=== PATIENT | male | born 1960 | race Two or more races ===

== ENCOUNTER 2018-07-13 08:24 | Inpatient (IN) | payer OTHER ==
[2018-07-13] VITALS (20 sets, daily range): BP systolic 104–159; BP diastolic 54–98
[~2018-07-13] VITALS: Ht 167.6 cm; Wt 92.5 kg
[2018-07-13] MEDS ORDERED: Magnesium 1GM/D5W 100ML PREMIX 200 ML IV ONE ×2 (08:31→08:48)
[2018-07-13] MEDS ORDERED: methylPREDNISolone SOD SUCC 125 MG/2ML VIAL ONE (08:35)
[2018-07-13] MEDS ORDERED: ALBUTEROL FS 2.5 MG/3 ML VIAL.NEB ONE (08:37)
[2018-07-13] MEDS ORDERED: IPRATROPIUM NEB FS 0.5 MG/2.5 ML AMPUL.NEB ONE (08:37)
[2018-07-13] MEDS ORDERED: methylPREDNISolone SOD SUCC 125 MG/2ML VIAL IV ONE (09:00)
[2018-07-13] MEDS ORDERED: IPRATROPIUM NEB FS 0.5 MG/2.5 ML AMPUL.NEB NEB ONE (09:00)
[2018-07-13] MEDS ORDERED: ALBUTEROL FS 2.5 MG/3 ML VIAL.NEB NEB ONE (09:00)
[2018-07-13] MEDS ORDERED: IV NS 0.9% 1,000 ML BAG IV ONE ×3 (09:00→13:30)
[2018-07-13 09:18] LABS: CALCIUM, SERUM 8.6 mg/dL (8.5-10.1); CARBON DIOXIDE 25 mmol/L (21-32); CHLORIDE 105 mmol/L (98-107); CREATININE 1.2 mg/dL (0.6-1.3); GLUCOSE 250 mg/dL (74-106); POTASSIUM 3.3 mmol/L (3.5-5.1); SODIUM SERUM 138 mmol/L (136-145); UREA NITROGEN, BLOOD 16 mg/dL (7-18)
[2018-07-13 09:21] LABS: EOSINOPHILS % (AUTO) 0.6 % (0.0-6.0); HEMATOCRIT 47 % (39-51); HEMOGLOBIN 15.6 g/dL (13.5-17.5); LYMPHOCYTES % (AUTO) 41.9 % (20.0-44.0); MEAN CORPUSCULAR HEMOGLOBIN 32 PG (26.0-33.0); MEAN CORPUSCULAR HGB CONC 33 g/dl (31.0-36.0); MEAN CORPUSCULAR VOLUME 96 fL (80-96); MONOCYTES # (AUTO) 0.5 /CMM (0.1-1.30); MONOCYTES % (AUTO) 4.3 % (2.0-12.0); NEUTROPHILS # (AUTO) 6.3 /CMM (1.8-8.9); NEUTROPHILS % (AUTO) 53.2 % (43.0-81.0); PLATELET COUNT (AUTO) 184 /CMM (150-450); RED BLOOD CELL COUNT(AUTO) 4.87 MIL/uL (4.5-6.0); WHITE BLOOD COUNT (AUTO) 11.9 K/uL (4.3-11.0)
[2018-07-13 09:26] LABS: TROPONIN I 0.059 ng/mL (0.00-0.056)
[2018-07-13 09:30] LABS: ALANINE AMINOTRANSFERASE 95 U/L (12-78); ALBUMIN 3.4 g/dL (3.4-5.0); ALKALINE PHOSPHATASE 98 U/L (46-116); ASPARTATE AMINOTRANSFERASE 81 U/L (15-37); B-TYPE NATRIURETIC PEPTIDE 66 PG/ML (0-125); BILIRUBIN,DIRECT 0.2 mg/dL (0.0-0.2); BILIRUBIN,TOTAL 0.6 mg/dL (0.2-1.0); TOTAL PROTEIN, SERUM 7.5 g/dL (6.4-8.2)
[2018-07-13] MEDS ORDERED: IOHEXOL-350 100 ML VIAL IV ONE (09:39)
[2018-07-13] MEDS ORDERED: CT SWABBABLE VALVE TRANS SET 1 EA INFUS.SET MC ONE (09:39)
[2018-07-13] MEDS ORDERED: IV NS 0.9% 250 ML IV ONE (09:39)
[2018-07-13] MEDS ORDERED: HEPARIN SODIUM, PORCINE 5000 UNITS/1 ML VIAL IV ONE (11:00)
[2018-07-13] MEDS ORDERED: HEPARIN INFUSION/D5W 500 ML IV ONE (11:00)
[2018-07-13] MEDS ORDERED: HEPARIN SODIUM, PORCINE 5000 UNITS/1 ML VIAL ONE (11:16)
[2018-07-13 11:46] LABS: INR 0.95 (0.85-1.15)
[2018-07-13] MEDS ORDERED: ASPI-1169 PO (12:58)
[2018-07-13] MEDS ORDERED: NOREPINEPHRINE 8 MG in IV D5W 500 ML IV PRN ×2 (13:30→15:30)
[2018-07-13] MEDS ORDERED: ACETAMINOPHEN 325 MG TABLET PO PRN (13:30)
[2018-07-13] MEDS ORDERED: ONDANSETRON HCL/PF 4 MG/2 ML VIAL IVP PRN (13:30)
[2018-07-13] MEDS ORDERED: FEE PK DOSING 1 MIN EA MC ONE (13:48)
[2018-07-13] MEDS: IV NS 0.9% 1,000 ML IV PRN (14:14)
[2018-07-13] MEDS: PIPERACILLIN /TAZOBACTAM 3.375 G in IV D5W 50 ML IV SCH ×2 (15:06→19:41)
[2018-07-13] MEDS: HEPARIN INFUSION/D5W 500 ML IV PRN (15:19)
[2018-07-13] MEDS: VANCOMYCIN 1.25 GM in IV D5W 500 ML IV SCH (16:39)
[2018-07-14] VITALS (29 sets, daily range): BP systolic 102–140; BP diastolic 61–88
[2018-07-14] MEDS: PIPERACILLIN /TAZOBACTAM 3.375 G in IV D5W 50 ML IV SCH ×4 (00:08→17:01)
[2018-07-14 01:20] LABS: TROPONIN I 0.391 ng/mL (0.00-0.056)
[2018-07-14] MEDS: IV NS 0.9% 1,000 ML IV PRN ×2 (04:31→15:09)
[2018-07-14 05:09] LABS: BASOPHILS % (AUTO) 0.2 % (0.0-2.0); HEMATOCRIT 41 % (39-51); HEMOGLOBIN 13.6 g/dL (13.5-17.5); LYMPHOCYTES # (AUTO) 1.8 /CMM (0.8-4.8); LYMPHOCYTES % (AUTO) 14.9 % (20.0-44.0); MEAN CORPUSCULAR HEMOGLOBIN 33 PG (26.0-33.0); MEAN CORPUSCULAR HGB CONC 33 g/dl (31.0-36.0); MEAN CORPUSCULAR VOLUME 98 fL (80-96); MONOCYTES # (AUTO) 0.5 /CMM (0.1-1.30); MONOCYTES % (AUTO) 4.5 % (2.0-12.0); NEUTROPHILS # (AUTO) 9.9 /CMM (1.8-8.9); NEUTROPHILS % (AUTO) 80.4 % (43.0-81.0); PLATELET COUNT (AUTO) 190 /CMM (150-450); WHITE BLOOD COUNT (AUTO) 12.3 K/uL (4.3-11.0)
[2018-07-14 05:14] LABS: CALCIUM, SERUM 8.3 mg/dL (8.5-10.1); PHOSPHORUS 2.1 mg/dL (2.5-4.9); POTASSIUM 4.2 mmol/L (3.5-5.1)
[2018-07-14 05:25] LABS: THYROID STIMULATING HORMONE 0.276 uIU/mL (0.358-3.74)
[2018-07-14] MEDS: HEPARIN INFUSION/D5W 500 ML IV PRN (08:44)
[2018-07-14] MEDS ORDERED: ASPIRIN 81 MG TAB.CHEW PO SCH (09:00)
[2018-07-14] MEDS ORDERED: PANTOPRAZOLE 40 MG VIAL IV SCH (09:00)
[2018-07-14 09:27] LABS: *BASOS 0 % (Not Estab.); *COMMENTS Note: (.); *EOS 0 % (Not Estab.); *HCT 32.6 % (37.5-51.0); *HGB 10.5 g/dL (13.0-17.7); *LYMPHOCYTES 4 % (Not Estab.); *LYMPHS, ABSOLUTE 2.6 x10E3/uL (0.7-3.1); *MCH 27.1 pg (26.6-33.0); *MCHC 32.2 g/dL (31.5-35.7); *MCV 84 fL (79-97); *MONOCYTES 4 % (Not Estab.); *MONOS, ABSOLUTE 2.6 x10E3/uL (0.1-0.9); *NEUTROPHILS 88 % (Not Estab.); *NEUTROPHILS, ABSOLUTE 58.7 x10E3/uL (1.4-7.0); *PLT 185 x10E3/uL (150-379); *RBC 3.87 x10E6/uL (4.14-5.80); *RDW 19.1 % (12.3-15.4)
[2018-07-14] MEDS: VANCOMYCIN 1.25 GM in IV D5W 500 ML IV SCH (10:18)
[2018-07-14 11:06] LABS: APPEARANCE,URINE CLEAR (CLEAR); BILIRUBIN,URINE NEGATIVE (NEGATIVE); BLOOD, URINE NEGATIVE Ery/uL (NEGATIVE); COLOR,URINE YELLOW (YELLOW); KETONES,URINE TRACE (NEGATIVE); LEUKOCYTE ESTERASE ,URINE NEGATIVE (NEGATIVE); NITRITE, URINE NEGATIVE (NEGATIVE); PROTEIN,URINE NEGATIVE (NEGATIVE); UGLUCOSE 2+ mg/dL (NEGATIVE); UROBILINOGEN,URINE 0.2 EU/dL (0.2)
[2018-07-14 11:17] LABS: *% CD 8 POS. LYMPH 24.2 % (12.0-35.5); *ABSOLUTE CD 4 HELPER 962 /uL (359-1519); *ABSOLUTE CD 8 SUPPRESSOR 629 /uL (109-897); *CD4/CD8 RATIO 1.53 (0.92-3.72)
[2018-07-14] MEDS ORDERED: K PHOS NEUTRAL 250 MG TABLET PO ONE (13:00)
[2018-07-14 13:25] LABS: BACTERIA,URINE Rare /HPF (None Seen); RBC,URINE NONE SEEN /HPF (0-2); SQUAMOUS EPITHELIAL CELL,UR Few /HPF (None Seen); WBC,URINE NONE SEEN /HPF (0-3)
[2018-07-14] MEDS ORDERED: RXVAN XX (17:21)
[2018-07-14] MEDS ORDERED: ACET325T53 PO (17:21)
[2018-07-14] MEDS ORDERED: ONDA4VIA30 IVP (17:21)
[2018-07-14] MEDS ORDERED: PANT40VI IV (17:21)
[2018-07-14] MEDS ORDERED: VANCOMYCIN 1.25 GM in IV D5W 500 ML IV SCH (22:00)
== END 2018-07-14 21:16 | disposition short-term general hospital (02) | DRG 871 ==
LOC: ER 08:27 → ICU 13:20
PROVIDERS: ADMIT Registered Nurse; ATTEND Registered Nurse
DX: A41.9 Sepsis, unspecified organism (principal); R65.21 Severe sepsis with septic shock; I21.A1 Myocardial infarction type 2; J18.9 Pneumonia, unspecified organism; I26.99 Other pulmonary embolism without acute cor pulmonale; E87.2 Acidosis; I47.2 Ventricular tachycardia; D72.829 Elevated white blood cell count, unspecified; E87.6 Hypokalemia; R74.0 Nonspecific elevation of levels of transaminase and lactic acid dehydrogenase [LDH]; E66.9 Obesity, unspecified; Z68.32 Body mass index [BMI] 32.0-32.9, adult; R06.89 Other abnormalities of breathing; Z85.828 Personal history of other malignant neoplasm of skin
CPT/HCPCS: 36415; 71045-TC; 80048-TC; 80061-TC; 80076-TC; 81000-TC; 83605-TC; 83735-TC; 83880; 84100-TC; 84443-TC; 84484-TC; 85025-TC; 85730-TC; 86360; 87040-TC; 87081-TC; 87086-TC; 93307-TC; 93970-TC; A4606; A6402; C9113; J1644; J2543; J2930; J3370; J3475; J7030; J7050; J7060; Q9967; Z7610